=== PATIENT | male | born 1995 | race Caucasian/White ===

== ENCOUNTER 2017-08-26 16:02 | Emergency (ER) | payer OTHER, SELFPAY ==
[2017-08-26 16:03] VITALS: BP 147/79; PULSE 82; RESP 16; TEMP 36.8; O2SAT 99; BMI 22.2
--- NOTE | 2017-08-26 16:22 | ED.RN ---
LEFT MESSAGE FOR DR GARZA
--- NOTE | 2017-08-26 16:35 | RAD_ITS ---
STUDY: X-RAY - LEFT HAND, ATTENTION THUMB REASON FOR EXAM: Male, 21 years old. Laceration TECHNIQUE: 3 view(s) of the finger were obtained. COMPARISON: None. FINDINGS: There is no evidence of fracture or dislocation. There are no significant degenerative changes. There are no radiodense foreign bodies. RAD/Finger(s) Min 2 Views IMPRESSION: No fracture or dislocation. No radiodense foreign body. Electronically Signed: Darrel Mcdaniel, at 17:05 EDT Tel , Service support ,
[2017-08-26] MEDS: Cefazolin 1 GM/50 ML BAG IV (16:51)
--- NOTE | 2017-08-26 16:54 | ED.VISSUMM ---
- ER Visit Summary Date of Service: 08/26/17 Chief Complaint: Injury left thumb History of Present Illness: The patient is a 21 M who is right-handed presents with injury radial side left thumb at the MCP joint. He is uncertain of last tetanus. Nurse informed me that his last tetanus shot was one year ago. He has no antibiotic allergy. He last ate at 12 noon. He drank a sip of water 1 hour prior to presentation. He denies any paresthesia, anesthesia or motor weakness. He has history of mild asthma. He denies any shortness of breath, difficulty breathing, cough or chest pain. Please read written note for complete detail Physical Examination: Blood pressure is elevated at 147/79. Patient has obvious injury to the right thumb with evidence of a traumatic arthrotomy and tendon involvement. The injury is on the radial side of the MCP joint. He is able to extend and flex. He is able to AB duct and adductor. He has abnormal 2 point determination on the radial side. The thumb is viable. There is no subungual hematoma. The MP joint subluxes when he attempts to move his thumb. Test Results: X-ray was obtained and there appears to be slight shaving of the proximal portion first metacarpal. There may also be involvement of the distal phalanx. This three-view x-ray of the left thumb was interpreted by me. Emergency Department Course and Treatment: IV was established and patient was made n.p.o. He received 1 g of Ancef IV piggyback. Dr. aroldo Reynolds was paged. He informed me that he would be out of town and recommended referral to someone else. Treatment Plan: Father and patient have been informed that he will need operative intervention and that a hand surgeon from [facility] was paged. Disposition: Referral to hand surgeon ([facility]). Spoke with Dr. Whitt who instructed me to have patient transferred to [facility] emergency department Impression: Traumatic arthrotomy MCP joint radial side left thumb with tendon involvement and neurovascular involvement. This note was generated with [employer] dictation software. It may contain incorrect words, spelling, and punctuation that were not noted in review of the chart prior to signing ED Disposition - Plan for ED Patient: Chief Complaint: Laceration Referrals: Seb Cruz MD [Primary Care Provider] -
--- NOTE | 2017-08-26 16:59 | ED.DCSUM_ITS ---
- ER Visit Summary Date of Service: 08/26/17 Chief Complaint: Injury left thumb History of Present Illness: The patient is a 21 M who is right-handed presents with injury radial side left thumb at the MCP joint. He is uncertain of last tetanus. Nurse informed me that his last tetanus shot was one year ago. He has no antibiotic allergy. He last ate at 12 noon. He drank a sip of water 1 hour prior to presentation. He denies any paresthesia, anesthesia or motor weakness. He has history of mild asthma. He denies any shortness of breath, difficulty breathing, cough or chest pain. Please read written note for complete detail Physical Examination: Blood pressure is elevated at 147/79. Patient has obvious injury to the right thumb with evidence of a traumatic arthrotomy and tendon involvement. The injury is on the radial side of the MCP joint. He is able to extend and flex. He is able to AB duct and adductor. He has abnormal 2 point determination on the radial side. The thumb is viable. There is no subungual hematoma. The MP joint subluxes when he attempts to move his thumb. Test Results: X-ray was obtained and there appears to be slight shaving of the proximal portion first metacarpal. There may also be involvement of the distal phalanx. This three-view x-ray of the left thumb was interpreted by me. Emergency Department Course and Treatment: IV was established and patient was made n.p.o. He received 1 g of Ancef IV piggyback. Dr. aroldo Reynolds was paged. He informed me that he would be out of town and recommended referral to someone else. Treatment Plan: Father and patient have been informed that he will need operative intervention and that a hand surgeon from [facility] was paged. Disposition: Referral to hand surgeon ([facility]). Spoke with Dr. Whitt who instructed me to have patient transferred to [facility] emergency department Impression: Traumatic arthrotomy MCP joint radial side left thumb with tendon involvement and neurovascular involvement. This note was generated with [employer] dictation software. It may contain incorrect words, spelling, and punctuation that were not noted in review of the chart prior to signing ED Disposition - Plan for ED Patient: Chief Complaint: Laceration Referrals: Seb Cruz MD [Primary Care Provider] -
[2017-08-26 18:06] VITALS: BP 154/84; PULSE 94; RESP 17; O2SAT 100
== END 2017-08-26 18:22 | disposition home or self-care (01) ==
LOC: ED 16:29
PROVIDERS: Emergency Provider Emergency Medicine; Family Provider Family Medicine; PCP Family Medicine
DX: S56.392A Other injury of extensor or abductor muscles, fascia and tendons of left thumb at forearm level, initial encounter (principal); S65.4 Injury of blood vessel of thumb; X58.XXXA Exposure to other specified factors, initial encounter; Y93.9 Activity, unspecified; Y92.9 Unspecified place or not applicable; J45.909 Unspecified asthma, uncomplicated
CPT/HCPCS: 73140; 96365; 99284; J7030; A4216